=== PATIENT | male | born 1980 ===

== ENCOUNTER 2016-07-23 15:09 | Emergency (ER) | payer SELFPAY ==
[2016-07-23 15:17] VITALS: BP 116/70; PULSE 110; RESP 20; TEMP 98; O2SAT 96
--- NOTE | 2016-07-23 15:34 | ED PDOC ---
HPI: Chest Pain Time Seen by Provider: 07/23/16 15:16 Chief Complaint (Nursing): Chest Pain Chief Complaint (Provider): Chest Pain History Per: Patient Onset/Duration Of Symptoms: Hrs Severity: Mild Quality: Tightness Associated Symptoms: Dyspnea Modifying Factors: None Exacerbating Factors: None Alleviating Factors: None Additional Complaint(s): Patient is a 36 year old male who presents to ED with HPD for evaluation of chest tightness today. Patient states he has a history of asthma, exacerbated by the stress of being arrested. Patient also notes he is "mentally not well," but denies hallucinations, SI or HI. Past Medical History Reviewed: Historical Data, Nursing Documentation, Vital Signs Vital Signs: Last Vital Signs Temp 98.0 F 07/23/16 15:12 Pulse 110 H 07/23/16 15:12 Resp 20 07/23/16 15:12 BP 116/70 07/23/16 15:12 Pulse Ox 96 07/23/16 15:36 - Medical History PMH: Asthma - Surgical History Surgical History: Tonsillectomy Other surgeries: Mental plate secondary to trauma - Family History Family History: States: Unknown Family Hx - Living Arrangements Living Arrangements: Alone - Social History Current smoker - smoking cessation education provided: Yes Alcohol: None Drugs: Cannabis - Immunization History Hx Tetanus Toxoid Vaccination: No Hx Influenza Vaccination: No Hx Pneumococcal Vaccination: No - Home Medications Home Medications: Ambulatory Orders Medication Instructions Recorded No Known Home Med 12/01/15 - Allergies Allergies/Adverse Reactions: Allergies Allergy/AdvReac Type Severity Reaction Status Date / Time seafood Allergy SWELLING Uncoded 07/23/16 15:11 Review of Systems ROS Statement: Except As Marked, All Systems Reviewed And Found Negative Constitutional: Negative for: Fever, Weakness Cardiovascular: Negative for: Chest Pain, Palpitations Respiratory: Positive for: Shortness of Breath. Negative for: Cough, Sputum Gastrointestinal: Negative for: Nausea, Vomiting, Abdominal Pain Neurological: Negative for: Weakness, Numbness Physical Exam - Reviewed Nursing Documentation Reviewed: Yes Vital Signs Reviewed: Yes - Physical Exam Appears: Positive for: Non-toxic, No Acute Distress Head Exam: Positive for: ATRAUMATIC Skin: Positive for: Normal Color, Warm Eye Exam: Positive for: Normal appearance Neck: Positive for: Normal, Painless ROM Cardiovascular/Chest: Positive for: Regular Rate, Rhythm. Negative for: Murmur Respiratory: Positive for: Normal Breath Sounds. Negative for: Respiratory Distress Back: Positive for: Normal Inspection Extremity: Positive for: Normal ROM. Negative for: Pedal Edema Neurologic/Psych: Positive for: Alert, Oriented - ECG O2 Sat by Pulse Oximetry: 96 (RA) Pulse Ox Interpretation: Normal Medical Decision Making Medical Decision Making: Time: 1519 Initial impression: Anxiety, oppositional defiant behavior Initial plan: -- Crisis eval Pt stable for incarceration Scribe Attestation: Documented by Christelle Ashby acting as a scribe for Vivian Rendon MD MD Scribe Attestation: All medical record entries made by the Scribe were at my direction and personally dictated by me. I have reviewed the chart and agree that the record accurately reflects my personal performance of the history, physical exam, medical decision making, and the department course for this patient. I have also personally directed, reviewed, and agree with the discharge instructions and disposition. Disposition - Clinical Impression Clinical Impression: Oppositional defiant behavior - Disposition Disposition: Discharged/Transfer to Law Enforcement Disposition Time: 16:00 Condition: STABLE Additional Instructions: MEDICALLY AND PSYCHIATRICALLY STABLE FOR INCARCERATION Instructions: Stress (ED)
== END 2016-07-23 16:54 | disposition left against medical advice (07) ==
LOC: H.ER 15:09
DX: F91.3 Oppositional defiant disorder (principal); R07.9 Chest pain, unspecified

== ENCOUNTER 2016-08-09 05:25 | Emergency (ER) | payer SELFPAY ==
[2016-08-09 05:33] VITALS: BP 114/73; PULSE 86; RESP 18; TEMP 98; O2SAT 99
--- NOTE | 2016-08-09 06:05 | ED PDOC ---
HPI: General Adult Time Seen by Provider: 08/09/16 05:30 Chief Complaint (Nursing): Medical Clearance Chief Complaint (Provider): Medical Clearance History Per: Patient History/Exam Limitations: no limitations Have you had recent travel within the past 21 days to any of the following countries: [place], [place], [place] or [place]?: No Additional Complaint(s): Bassam Hester is a 36 year old male, with no pertinent past medical history, who presents to the emergency department via [place] [employer] officers for medical clearance. Patient states he has no complaints. PMD: none specified Past Medical History Reviewed: Historical Data, Nursing Documentation, Vital Signs Vital Signs: Last Vital Signs Temp 98.0 F 08/09/16 05:30 Pulse 86 08/09/16 05:30 Resp 18 08/09/16 05:30 BP 114/73 08/09/16 05:30 Pulse Ox 99 08/09/16 06:11 - Medical History PMH: Asthma Denies: CVA, Diabetes, Hepatitis, HIV, HTN, Chronic Kidney Disease, Seizures , Sexually Transmitted Disease - Surgical History Surgical History: Tonsillectomy - Family History Family History: States: Unknown Family Hx - Social History Current smoker - smoking cessation education provided: Yes (Heavy Smoker (x19 years) > 10 cigarettes daily) Alcohol: Occasional Drugs: Cannabis - Immunization History Hx Tetanus Toxoid Vaccination: No Hx Influenza Vaccination: No Hx Pneumococcal Vaccination: No - Home Medications Home Medications: Ambulatory Orders Medication Instructions Recorded No Known Home Med 12/01/15 - Allergies Allergies/Adverse Reactions: Allergies Allergy/AdvReac Type Severity Reaction Status Date / Time seafood Allergy SWELLING Uncoded 07/23/16 15:11 Review of Systems ROS Statement: Except As Marked, All Systems Reviewed And Found Negative Physical Exam - Reviewed Nursing Documentation Reviewed: Yes Vital Signs Reviewed: Yes - Physical Exam Appears: Positive for: Non-toxic, No Acute Distress Head Exam: Positive for: ATRAUMATIC, NORMOCEPHALIC Skin: Positive for: Normal Color, Dry Neck: Positive for: Normal, Painless ROM Cardiovascular/Chest: Positive for: Regular Rate, Rhythm. Negative for: Murmur Respiratory: Positive for: Normal Breath Sounds. Negative for: Respiratory Distress Gastrointestinal/Abdominal: Positive for: Normal Exam, Soft. Negative for: Tenderness Extremity: Positive for: Normal ROM. Negative for: Tenderness Neurologic/Psych: Positive for: Alert, Oriented - ECG O2 Sat by Pulse Oximetry: 99 (RA) Pulse Ox Interpretation: Normal Medical Decision Making Medical Decision Makin:55 Initial Impression: Medical Clearance for incarceration pt has no medical or psychological complaints Scribe Attestation: Documented by Jesus Story, acting as a scribe for Hammad Hu MD. Provider Scribe Attestation: All medical record entries made by the Scribe were at my direction and personally dictated by me. I have reviewed the chart and agree that the record accurately reflects my personal performance of the history, physical exam, medical decision making, and the department course for this patient. I have also personally directed, reviewed, and agree with the discharge instructions and disposition. Disposition - Clinical Impression Clinical Impression: Medical clearance for incarceration - Patient ED Disposition Is Patient to be Admitted: No Counseled Patient/Family Regarding: Studies Performed, Diagnosis, Need For Followup - Disposition Disposition: Discharged/Transfer to Law Enforcement Disposition Time: 06:30 Condition: GOOD Additional Instructions: patient is medically and psychiatrically cleared for incarceration. Instructions: Normal Exam (ED)
== END 2016-08-09 06:28 | disposition home or self-care (01) ==
LOC: H.ER 05:25
DX: J45.909 Unspecified asthma, uncomplicated (principal)

== ENCOUNTER 2017-03-12 20:37 | Emergency (ER) | payer MEDICAID ==
[2017-03-12 20:51] VITALS: BP 151/101; PULSE 107; RESP 20; TEMP 98.3; O2SAT 99
--- NOTE | 2017-03-12 21:16 | ED PDOC ---
HPI: General Adult Time Seen by Provider: 03/12/17 20:53 Chief Complaint (Nursing): Medical Clearance Chief Complaint (Provider): Medical and Psychiatric Clearance History Per: Patient History/Exam Limitations: no limitations Onset/Duration Of Symptoms: Hrs (prior to arrival ) Additional Complaint(s): Bassam Hester is a 36 year old male brought to the ED via Police for prophylactic measurements prior to incarceration. The patient offers no medical complaints upon evaluation and admits to marijuana use prior to arrival. He denies suicidal or homicidal ideations. PMD: TBD Past Medical History Reviewed: Historical Data, Nursing Documentation, Vital Signs Vital Signs: Last Vital Signs Temp 98.3 F 03/12/17 20:47 Pulse 107 H 03/12/17 20:47 Resp 20 03/12/17 20:47 BP 151/101 H 03/12/17 20:47 Pulse Ox 99 03/12/17 21:17 - Medical History PMH: Asthma Denies: CVA, Diabetes, Hepatitis, HIV, HTN, Chronic Kidney Disease, Seizures , Sexually Transmitted Disease - Surgical History Surgical History: Tonsillectomy - Family History Family History: States: Unknown Family Hx - Social History Current smoker - smoking cessation education provided: Yes Drugs: Cannabis - Immunization History Hx Tetanus Toxoid Vaccination: No Hx Influenza Vaccination: No Hx Pneumococcal Vaccination: No - Home Medications Home Medications: Ambulatory Orders Medication Instructions Recorded No Known Home Med 12/01/15 - Allergies Allergies/Adverse Reactions: Allergies Allergy/AdvReac Type Severity Reaction Status Date / Time seafood Allergy SWELLING Uncoded 03/12/17 20:47 Review of Systems ROS Statement: Except As Marked, All Systems Reviewed And Found Negative Psych: Negative for: Suicidal ideation (or homicidal ideations) Physical Exam - Reviewed Nursing Documentation Reviewed: Yes Vital Signs Reviewed: Yes - Physical Exam Appears: Positive for: Non-toxic, No Acute Distress Head Exam: Positive for: ATRAUMATIC, NORMOCEPHALIC Skin: Positive for: Normal Color, Warm, Dry Eye Exam: Positive for: Normal appearance, EOMI ENT: Positive for: Normal ENT Inspection Neck: Positive for: Normal, Painless ROM Cardiovascular/Chest: Positive for: Regular Rate, Rhythm, Chest Non Tender Respiratory: Positive for: Normal Breath Sounds. Negative for: Respiratory Distress Gastrointestinal/Abdominal: Positive for: Normal Exam, Soft. Negative for: Tenderness Back: Positive for: Normal Inspection Extremity: Positive for: Normal ROM. Negative for: Deformity Neurologic/Psych: Positive for: Alert, Oriented (x3). Negative for: Motor/ Sensory Deficits - ECG O2 Sat by Pulse Oximetry: 99 (RA) Pulse Ox Interpretation: Normal Medical Decision Making Medical Decision Making: Time: 20:53 Impression: Medical/Psychiatric Clearance prior to incarceration Plan: Patient is medically and psychiatrically cleared for incarceration. Scribe Attestation: Documented by Enid Britton, acting as a scribe for Vivian Sy PA-C. Provider Scribe Attestation: All medical record entries made by the Scribe were at my direction and personally dictated by me. I have reviewed the chart and agree that the record accurately reflects my personal performance of the history, physical exam, medical decision making, and the department course for this patient. I have also personally directed, reviewed, and agree with the discharge instructions and disposition. Disposition - Clinical Impression Clinical Impression: Medical clearance for incarceration - Patient ED Disposition Is Patient to be Admitted: No - Disposition Disposition: Routine/Home Disposition Time: 22:27 Condition: STABLE Additional Instructions: Patient is medically and psychiatrically cleared for incarceration Instructions: Normal Exam (ED) Forms: [employer] (Macedonian)
== END 2017-03-12 22:02 | disposition home or self-care (01) ==
LOC: H.ER 20:37
DX: Z02.89 Encounter for other administrative examinations (principal); J45.909 Unspecified asthma, uncomplicated

== ENCOUNTER 2017-03-13 00:07 | Emergency (ER) | payer MEDICAID ==
[2017-03-13 00:24] VITALS: BMI 22.9
[2017-03-13 00:25] VITALS: BP 143/93; RESP 16; TEMP 98.2; O2SAT 97
--- NOTE | 2017-03-13 00:34 | ED PDOC ---
HPI: Chest Pain Time Seen by Provider: 03/13/17 00:23 Chief Complaint (Nursing): Chest Pain Chief Complaint (Provider): Chest Pain History Per: Patient History/Exam Limitations: no limitations Additional Complaint(s): Patient is a 36 y/o male who was brought in by [facility]ais[facility] FLORES for medical clearance for incarceration. He was evaluated in this facility and cleared medically and psychiatrically, but has now changed his complaint to chest pain after being informed he was going to [facility]. Patient denies nausea, vomiting, or diaphoresis, but admits he has anxiety about incarceration. PMD: None Provided Past Medical History Reviewed: Historical Data, Nursing Documentation, Vital Signs Vital Signs: Last Vital Signs Temp 98.2 F 03/13/17 00:22 Pulse 106 H 03/13/17 00:22 Resp 16 03/13/17 00:22 BP 143/93 H 03/13/17 00:22 Pulse Ox 97 03/13/17 00:39 - Medical History PMH: Asthma Denies: CVA, Diabetes, Hepatitis, HIV, HTN, Chronic Kidney Disease, Seizures , Sexually Transmitted Disease - Surgical History Surgical History: Tonsillectomy - Family History Family History: States: Unknown Family Hx - Social History Drugs: Denies (cocaine) - Immunization History Hx Tetanus Toxoid Vaccination: No Hx Influenza Vaccination: No Hx Pneumococcal Vaccination: No - Home Medications Home Medications: Ambulatory Orders Medication Instructions Recorded No Known Home Med 12/01/15 - Allergies Allergies/Adverse Reactions: Allergies Allergy/AdvReac Type Severity Reaction Status Date / Time seafood Allergy SWELLING Uncoded 03/12/17 20:47 Review of Systems ROS Statement: Except As Marked, All Systems Reviewed And Found Negative Constitutional: Negative for: Sweats Cardiovascular: Positive for: Chest Pain Gastrointestinal: Negative for: Nausea, Vomiting Psych: Positive for: Anxiety Physical Exam - Reviewed Nursing Documentation Reviewed: Yes Vital Signs Reviewed: Yes - Physical Exam Appears: Positive for: Well, Non-toxic, No Acute Distress Head Exam: Positive for: ATRAUMATIC, NORMAL INSPECTION, NORMOCEPHALIC Skin: Positive for: Normal Color, Warm, DRY Eye Exam: Positive for: Normal appearance, EOMI, PERRL. Negative for: Nystagmus ENT: Positive for: Normal ENT Inspection Neck: Positive for: Normal, Painless ROM, Supple Cardiovascular/Chest: Positive for: Regular Rate, Rhythm. Negative for: Murmur Respiratory: Positive for: Normal Breath Sounds. Negative for: Respiratory Distress Gastrointestinal/Abdominal: Positive for: Normal Exam, Bowel Sounds, Soft. Negative for: Tenderness Back: Positive for: Normal Inspection Extremity: Positive for: Normal ROM. Negative for: Pedal Edema, Deformity Neurologic/Psych: Positive for: Alert, Oriented. Negative for: Motor/Sensory Deficits - ECG ECG: Positive for: Interpreted By Me, Viewed By Me ECG Rhythm: Positive for: Sinus Rhythm. Negative for: ST/T Changes Rate: 98 (bpm) O2 Sat by Pulse Oximetry: 97 (RA) Pulse Ox Interpretation: Normal Medical Decision Making Medical Decision Making: Time: 00:17 Initial Impression: 36 y/o male brought for medical clearance by [facility] --EKG normal --Patient medically stable and released to [facility]. Scribe Attestation: Documented by Cory Oakes, acting as a scribe for Dorian Porter MD Provider Scribe Attestation: All medical record entries made by the Scribe were at my direction and personally dictated by me. I have reviewed the chart and agree that the record accurately reflects my personal performance of the history, physical exam, medical decision making, and the department course for this patient. I have also personally directed, reviewed, and agree with the discharge instructions and disposition. Disposition - Clinical Impression Clinical Impression: Atypical chest pain - Patient ED Disposition Is Patient to be Admitted: No Counseled Patient/Family Regarding: Studies Performed, Diagnosis - Disposition Disposition: Discharged/Transfer to Law Enforcement Disposition Time: 00:23 Condition: STABLE Additional Instructions: Patient is medically stable for incarceration Instructions: Noncardiac Chest Pain (ED) Forms: [employer] (Amharic)
[2017-03-13 01:10] VITALS: PULSE 98
--- NOTE | 2017-03-13 21:12 | CARD ---
APPROVED REPORT EKG Measurement Heart [id number] <Conclusion> Normal sinus rhythm Minimal voltage criteria for LVH, may be normal variant Borderline ECG
== END 2017-03-13 00:37 ==
LOC: H.ER 00:07
DX: R07.89 Other chest pain (principal); J45.909 Unspecified asthma, uncomplicated; F41.9 Anxiety disorder, unspecified

== ENCOUNTER 2017-05-10 00:48 | Emergency (ER) | payer MEDICAID ==
[2017-05-10 00:48] VITALS: BMI 22.9
[2017-05-10 01:56] VITALS: BP 124/71; PULSE 91; RESP 16; TEMP 98.4; O2SAT 97
--- NOTE | 2017-05-10 02:44 | ED PDOC ---
HPI: General Adult Time Seen by Provider: 05/10/17 01:30 Chief Complaint (Nursing): Flu-like Symptoms Chief Complaint (Provider): Nausea History Per: Patient History/Exam Limitations: no limitations Additional Complaint(s): Bassam Hester is a 37 year old male who presents to the emergency department, complaining of nausea and fatigue. Denies vomiting, diarrhea, fever, or chills. Upon arrival, patient appears somnolent and was previously found sleeping in the waiting room. PMD: Provider TBD Past Medical History Reviewed: Historical Data, Nursing Documentation, Vital Signs Vital Signs: Last Vital Signs Temp 98.4 F 05/10/17 01:51 Pulse 91 H 05/10/17 01:51 Resp 16 05/10/17 01:51 BP 124/71 05/10/17 01:51 Pulse Ox 97 05/10/17 04:17 - Medical History PMH: Asthma Denies: CVA, Diabetes, Hepatitis, HIV, HTN, Chronic Kidney Disease, Seizures , Sexually Transmitted Disease - Surgical History Surgical History: Tonsillectomy - Family History Family History: States: Unknown Family Hx - Immunization History Hx Tetanus Toxoid Vaccination: No Hx Influenza Vaccination: No Hx Pneumococcal Vaccination: No - Home Medications Home Medications: Ambulatory Orders Medication Instructions Recorded No Known Home Med 12/01/15 - Allergies Allergies/Adverse Reactions: Allergies Allergy/AdvReac Type Severity Reaction Status Date / Time seafood Allergy SWELLING Uncoded 03/12/17 20:47 Review of Systems ROS Statement: Except As Marked, All Systems Reviewed And Found Negative Constitutional: Negative for: Fever, Chills Gastrointestinal: Positive for: Nausea. Negative for: Vomiting, Abdominal Pain , Diarrhea Physical Exam - Reviewed Nursing Documentation Reviewed: Yes Vital Signs Reviewed: Yes - Physical Exam Appears: Positive for: Non-toxic, No Acute Distress Head Exam: Positive for: ATRAUMATIC, NORMAL INSPECTION, NORMOCEPHALIC Skin: Positive for: Normal Color, Warm, Dry Eye Exam: Positive for: EOMI, Normal appearance, PERRL ENT: Positive for: Normal ENT Inspection Neck: Positive for: Normal, Supple Cardiovascular/Chest: Positive for: Regular Rate, Rhythm. Negative for: Murmur Respiratory: Positive for: Normal Breath Sounds. Negative for: Accessory Muscle Use, Respiratory Distress Gastrointestinal/Abdominal: Positive for: Normal Exam, Soft. Negative for: Tenderness Extremity: Positive for: Normal ROM. Negative for: Deformity Neurologic/Psych: Positive for: Alert (and awake), Other (Somnolent, but responsive to verbal stimuli) - ECG O2 Sat by Pulse Oximetry: 97 (RA) Pulse Ox Interpretation: Normal Medical Decision Making Medical Decision Making: Time: 02:30 Initial Plan: --Urine drug screen --Reevaluation Time: 04:15 Upon reevaluation, patient is sleeping comfortably. Vital signs are stable. pt ambulating with steady gait, vitals stable Scribe Attestation: Documented by Morenita Nolan, acting as a scribe for Hammad Hu MD Provider Scribe Attestation: All medical record entries made by the Scribe were at my direction and personally dictated by me. I have reviewed the chart and agree that the record accurately reflects my personal performance of the history, physical exam, medical decision making, and the department course for this patient. I have also personally directed, reviewed, and agree with the discharge instructions and disposition. Disposition - Clinical Impression Clinical Impression: Other reasons for seeking consultation - Patient ED Disposition Is Patient to be Admitted: No Counseled Patient/Family Regarding: Need For Followup - Disposition Referrals: [facility] [Outside] [facility] [Outside] Disposition: Routine/Home Disposition Time: 03:00 Condition: IMPROVED Additional Instructions: follow up with your doctor return to ED with any worsening or concerning symptoms Forms: [employer] (Malawian)
== END 2017-05-10 05:51 | disposition home or self-care (01) ==
LOC: H.ER 00:48
DX: R11.0 Nausea (principal)

== ENCOUNTER 2017-06-03 19:45 | Emergency (ER) | payer MEDICAID ==
[2017-06-03 19:45] VITALS: BMI 22.9
[2017-06-03 20:02] VITALS: BP 124/80; RESP 18; TEMP 98.2; O2SAT 99
--- NOTE | 2017-06-03 21:24 | ED PDOC ---
HPI: General Adult Time Seen by Provider: 06/03/17 20:32 Chief Complaint (Nursing): Medical Clearance Chief Complaint (Provider): Medical Clearance History Per: Patient History/Exam Limitations: no limitations Onset/Duration Of Symptoms: Mins (just prior to arrival) Current Symptoms Are (Timing): Still Present Additional Complaint(s): 36 yo male, under police custody, presents to the ED for medical and psych clearance for intoxication, onset of just prior to arrival. Triage states that he complains of dizziness with associated chest pain on arrival to the ED, that both have now resolved. He denies any complaints or past medical history. Past Medical History Reviewed: Historical Data, Nursing Documentation, Vital Signs Vital Signs: Last Vital Signs Temp 98.2 F 06/03/17 19:54 Pulse 89 06/03/17 19:54 Resp 18 06/03/17 19:54 BP 124/80 06/03/17 19:54 Pulse Ox 99 06/03/17 19:54 - Medical History PMH: Asthma Denies: CVA, Diabetes, Hepatitis, HIV, HTN, Chronic Kidney Disease, Seizures , Sexually Transmitted Disease - Surgical History Surgical History: Tonsillectomy - Family History Family History: States: Unknown Family Hx - Social History Current smoker - smoking cessation education provided: Yes Alcohol: None Drugs: Denies - Immunization History Hx Tetanus Toxoid Vaccination: No Hx Influenza Vaccination: No Hx Pneumococcal Vaccination: No - Home Medications Home Medications: Ambulatory Orders Medication Instructions Recorded No Known Home Med 12/01/15 - Allergies Allergies/Adverse Reactions: Allergies Allergy/AdvReac Type Severity Reaction Status Date / Time seafood Allergy SWELLING Uncoded 06/03/17 19:54 Review of Systems ROS Statement: Except As Marked, All Systems Reviewed And Found Negative Constitutional: Negative for: Fever Psych: Negative for: Suicidal ideation Physical Exam - Reviewed Nursing Documentation Reviewed: Yes Vital Signs Reviewed: Yes - Physical Exam Appears: Positive for: Well, Non-toxic, No Acute Distress Head Exam: Positive for: ATRAUMATIC, NORMAL INSPECTION, NORMOCEPHALIC Skin: Positive for: Normal Color, Warm Eye Exam: Positive for: Normal appearance Cardiovascular/Chest: Positive for: Regular Rate, Rhythm. Negative for: Murmur Respiratory: Positive for: Normal Breath Sounds. Negative for: Respiratory Distress Extremity: Positive for: Normal ROM. Negative for: Pedal Edema, Deformity Neurologic/Psych: Positive for: Alert, Oriented. Negative for: Motor/Sensory Deficits - ECG ECG Rhythm: Positive for: Normal QRS. Negative for: ST/T Changes Rate: 88 O2 Sat by Pulse Oximetry: 99 (RA) Pulse Ox Interpretation: Normal Medical Decision Making Medical Decision Making: Time: --20:36 Impression: --dizziness resolved/ medical and psych clearance Plan: --Crisis Eval --EKG Reassess --20:54 Patient has been cleared by crisis and is stable for discharge to law enforcement. Scribe Attestation: Documented by Bowen Salcedo acting as a scribe for Romy Madison MD. Provider Attestation: All medical record entries made by the Scribe were at my direction and personally dictated by me. I have reviewed the chart and agree that the record accurately reflects my personal performance of the history, physical exam, medical decision making, and the department course for this patient. I have also personally directed, reviewed, and agree with the discharge instructions and disposition. Disposition - Clinical Impression Clinical Impression: Episode of dizziness - Disposition Condition: STABLE Additional Instructions: PATIENT IS MEDICALLY CLEARED FOR INCARCERATION. Instructions: Dizziness (ED) Forms: [email or web address] (Moldovan)
[2017-06-03 21:28] VITALS: PULSE 88
--- NOTE | 2017-06-04 09:33 | CARD ---
APPROVED REPORT EKG Measurement Heart [id number] <Conclusion> Normal sinus rhythm Normal ECG
== END 2017-06-03 21:40 ==
LOC: H.ER 19:45
DX: R42 Dizziness and giddiness; R07.89 Other chest pain; J45.909 Unspecified asthma, uncomplicated

== ENCOUNTER 2017-06-14 12:11 | Emergency (ER) | payer MEDICAID ==
[2017-06-14 12:11] VITALS: BMI 22.9
[2017-06-14 12:28] VITALS: BP 138/68; PULSE 97; RESP 18; TEMP 98.5; O2SAT 98
--- NOTE | 2017-06-14 13:11 | RAD ---
PROCEDURE: Left small finger radiographs. HISTORY: finger injury COMPARISON: None. TECHNIQUE: AP radiograph of the left hand, as well as spot oblique and lateral images of left small finger were obtained. FINDINGS: LEFT SMALL FINGER: Minimally displaced fracture of the 5th proximal phalanx metaphysis with mild ulnar and dorsal angulation. JOINTS: Normal. SOFT TISSUES: Fifth digit region soft-tissue swelling. OTHER FINDINGS: None. IMPRESSION: Minimally displaced and angulated fracture of the 5th proximal phalanx metaphysis.
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
[2017-06-14] MEDS ORDERED: Lidocaine 1% Inj (20ml) IJ ONE (14:19)
[2017-06-14] MEDS ORDERED: Lidocaine 1% Inj (20ml) ONE (14:30)
[2017-06-14] MEDS ORDERED: Lidocaine 1% w Epi 1:100,000 Inj IJ ONE (16:15)
== END 2017-06-14 17:48 | disposition home or self-care (01) ==
LOC: H.ER 12:11
DX: S69.92XA Unspecified injury of left wrist, hand and finger(s), initial encounter (principal); W50.0XXA Accidental hit or strike by another person, initial encounter; S62.617A Displaced fracture of proximal phalanx of left little finger, initial encounter for closed fracture; J45.909 Unspecified asthma, uncomplicated; Z86.59 Personal history of other mental and behavioral disorders

== ENCOUNTER 2017-08-25 01:43 | Emergency (ER) | payer MEDICAID ==
[2017-08-25 01:44] VITALS: BMI 22.9
[2017-08-25 01:57] VITALS: O2SAT 100
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
[2017-08-25 05:54] VITALS: BP 143/73; PULSE 74; RESP 18; TEMP 98.4
== END 2017-08-25 05:50 | disposition home or self-care (01) ==
LOC: H.ER 01:43
DX: F43.20 Adjustment disorder, unspecified (principal); F12.90 Cannabis use, unspecified, uncomplicated; F20.9 Schizophrenia, unspecified; F31.9 Bipolar disorder, unspecified; J45.909 Unspecified asthma, uncomplicated; Z91.14 Patient's other noncompliance with medication regimen

== ENCOUNTER 2017-10-08 18:52 | Observation (INO) | payer MEDICAID ==
[2017-10-08 18:53] VITALS: BMI 22.9
[2017-10-08] MEDS ORDERED: Sodium Chloride 0.9% 1,000 ML IV STA (19:35)
[2017-10-08 19:51] LABS: BASO # 0.1 K/uL (0.0-0.2); BASO % 0.7 % (0.0-2.0); EOS # 0.2 K/uL (0.0-0.7); HEMOGLOBIN 14.6 g/dL (12.0-18.0); LYMPH # 2.8 K/uL (1.0-4.3); LYMPH % 35.5 % (20.0-40.0); MEAN CELL VOLUME 88.6 fl (80.0-94.0); MEAN CORPUSCULAR HEMOGLOBIN 30.3 pg (27.0-31.0); MEAN CORPUSCULAR HGB CONC 34.2 g/dL (33.0-37.0); MONO # 0.6 K/uL (0.0-0.8); MONO % 8.1 % (0.0-10.0); NEUT # 4.3 K/uL (1.8-7.0); NEUT % 53.7 % (50.0-75.0); NRBC % 0.1 % (0.0-0.0); RBC 4.82 Mil/uL (4.40-5.90); RED CELL DISTRIBUTION WIDTH 13.6 % (11.5-14.5)
[2017-10-08 20:00] LABS: INR 1.2 (0.9-1.2)
[2017-10-08 20:02] LABS: ALB/GLOB RATIO 1.3 (1.0-2.1); ALBUMIN 4.1 g/dL (3.5-5.0); ALT/SGPT 36 U/L (21-72); AST/SGOT 28 U/L (17-59); BLOOD UREA NITROGEN 17 mg/dl (9-20); CALCIUM 9.4 mg/dL (8.4-10.2); GFR AFRICAN-AMERICAN > 60; GFR NON-AFRICAN AMERICAN > 60
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
[2017-10-09] MEDS ORDERED: Dexamethasone 10 MG in Sodium Chloride 0.9% 50 ML IVPB STA ×2 (00:38→01:47)
[2017-10-09] MEDS ORDERED: Multivitamin (MVI) 10 ML, Thiamine 100 MG, Folic Acid 1 MG in Sodium Chloride 0.9% 1,00... IV ONE (00:45)
[2017-10-09] MEDS ORDERED: Dexamethasone 4 mg/1 ml IVP ONE (01:00)
[2017-10-09] MEDS ORDERED: Dexamethasone 4 mg/1 ml ONE (01:35)
[2017-10-09] MEDS ORDERED: Pneumococcal 23-Valent Vaccine IM ONE (04:00)
[2017-10-09] MEDS: Dexamethasone 4 mg/1 ml IVP SCH ×2 (06:22→12:32)
[2017-10-09 06:33] LABS: OPIATES, UR NEGATIVE (NEGATIVE)
[2017-10-09 06:34] LABS: BARBITURATES, UR NEGATIVE (NEGATIVE); BENZODIAZEPINES, UR NEGATIVE (NEGATIVE); PHENCYCLIDINE, UR POSITIVE (NEGATIVE)
[2017-10-09] MEDS ORDERED: Dexamethasone 4 MG in Sodium Chloride 0.9% 50 ML IVPB SCH (07:00)
--- NOTE | 2017-10-09 08:49 | RAD ---
HISTORY: weakness altered mental status COMPARISON: Chest radiograph dated 03/31/2016. FINDINGS: LUNGS: No active pulmonary disease. PLEURA: No significant pleural effusion identified, no pneumothorax apparent. CARDIOVASCULAR: Normal. OSSEOUS STRUCTURES: No significant abnormalities. VISUALIZED UPPER ABDOMEN: Normal. OTHER FINDINGS: None. IMPRESSION: No active disease.
[2017-10-09] MEDS ORDERED: Enoxaparin 40 mg Syringe SC SCH (09:00)
--- NOTE | 2017-10-09 11:03 | CT ---
PROCEDURE: CT HEAD WITHOUT CONTRAST. HISTORY: follow vasogenic edema COMPARISON: CT head dated 10/08/2017. TECHNIQUE: Axial computed tomography images were obtained through the head/brain without intravenous contrast. Radiation dose: Total exam DLP = 713.1 mGy-cm. This CT exam was performed using one or more of the following dose reduction techniques: Automated exposure control, adjustment of the mA and/or kV according to patient size, and/or use of iterative reconstruction technique. FINDINGS: HEMORRHAGE: Stable area peripheral left temporoparietal hyperdensity. BRAIN: Stable amount of small amount of left temporoparietal edema. No atrophy or chronic microvascular ischemic changes. VENTRICLES: Unremarkable. No hydrocephalus. CALVARIUM: Unremarkable. PARANASAL SINUSES: Unremarkable as visualized. No significant inflammatory changes. MASTOID AIR CELLS: Unremarkable as visualized. No inflammatory changes. OTHER FINDINGS: None. IMPRESSION: No significant change in peripheral left temporoparietal hyperdensity and surrounding edema. Contrast-enhanced MRI can be obtained for further evaluation as previously recommended.
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
[2017-10-09 15:42] VITALS: BP 137/73; PULSE 80; RESP 20; TEMP 98.1
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
[2017-10-09 18:32] VITALS: O2SAT 100
== END 2017-10-09 17:52 | disposition home or self-care (01) ==
LOC: H.ER 18:52 → INTOOBSV 22:20 → H.ERHOLD 22:20 → H.TEL 10-09 02:03
PROVIDERS: ADMIT Internal Medicine; ATTEND Internal Medicine
DX: S00.93XA Contusion of unspecified part of head, initial encounter (principal); G93.6 Cerebral edema; J45.909 Unspecified asthma, uncomplicated; F31.9 Bipolar disorder, unspecified; G43.909 Migraine, unspecified, not intractable, without status migrainosus; F10.10 Alcohol abuse, uncomplicated; F16.10 Hallucinogen abuse, uncomplicated; F12.10 Cannabis abuse, uncomplicated; Z23 Encounter for immunization; Z91.013 Allergy to seafood
CPT/HCPCS: 70450; 70486; 71045; 80053; 80320; 80324; 80345; 80346; 80349; 80353; 80358; 80361; 83992; 85025; 85610; 85730; 90471; 90732; 96360; 96374; 99285; G0378; J1100; J3411; J7030

== ENCOUNTER 2017-10-13 17:23 | Emergency (ER) | payer MEDICAID ==
[2017-10-13 17:23] VITALS: BMI 22.9
[2017-10-13 18:15] VITALS: RESP 16
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
[2017-10-13 20:15] VITALS: TEMP 98.3
[2017-10-13 23:42] VITALS: BP 132/98; PULSE 86; O2SAT 98
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
--- NOTE | 2017-10-14 09:13 | CT ---
PROCEDURE: CT MAXILLOFACIAL BONES WITHOUT CONTRAST HISTORY: LEFT facial pain COMPARISON: CT Maxillofacial Bones 10/08/2017. TECHNIQUE: Contiguous axial CT images of the maxillofacial bones were obtained. Coronal and sagittal reformats were generated. Radiation dose: Total exam DLP = 689.02 mGy-cm. This CT exam was performed using one or more of the following dose reduction techniques: Automated exposure control, adjustment of the mA and/or kV according to patient size, and/or use of iterative reconstruction technique. FINDINGS: Multiple acute fractures are identified in the interval. A nondisplaced fracture of the floor of the left orbit is identified from the anterior orbital ridge sparing only a minimal portion of the posterior segment of the floor. Fracture since through the infraorbital foramen. A nondisplaced left lateral orbital wall fracture is also identified. There is a fracture of the lateral wall of the left maxilla and the left zygomatic arch is depressed due to a comminuted fracture. Further, the anterior wall of the left maxillary sinuses depressed due to a fracture. There is borderline widening of the left zygomatic frontal suture with the overall pattern borderline for zygomaticomaxillary complex fracture. No additional facial fractures identified with prior ORIF of right facial fractures reiterated at the anterior wall right maxillary sinus and the right zygomaticofrontal suture. Moderate left supraorbital soft tissue edema is identified which appears completely preseptal with no postseptal involvement. Moderate edema is seen in the bilateral paranasal soft tissues extending into the bilateral forehead soft tissues, left greater than right. Remaining facial soft tissues are unremarkable appearing. Remaining visualized bilateral temporal and frontal bones are intact as well as the mandible and maxilla. No subluxation or dislocation of the temporomandibular joints is appreciated. SKULL BASE: Unremarkable. TEMPORAL BONES: Middle ears and mastoid grossly unremarkable. Note is made of soft tissue in the external auditory canals probably reflecting cerumen, however, clinical correlation is nevertheless recommended. OTHER FINDINGS: Minimal right ethmoid sinus disease appreciated and posttraumatic left maxillary sinusitis is identified minimally. IMPRESSION: Complex left facial/ orbital fractures are identified including the inferior and lateral ramirez of the left orbit, anterior and lateral ramirez of the left maxillary sinus and a depressed zygomatic arch fracture as well. Inferior orbital fracture extends through the infraorbital foramen. For orbital, bilateral paranasal and bilateral forehead soft tissue edema as discussed above. Posttraumatic sinusitis is minimal to left maxillary sinus. The overall pattern is borderline for zygomaticomaxillary complex fracture. Prior ORIF right facial bones reiterated. Concordant preliminary report from [facility], 10/13/2017.
== END 2017-10-13 23:40 | disposition home or self-care (01) ==
LOC: H.ER 17:23
DX: S02.92XA Unspecified fracture of facial bones, initial encounter for closed fracture (principal); Y04.0XXA Assault by unarmed brawl or fight, initial encounter; Y92.89 Other specified places as the place of occurrence of the external cause; F31.9 Bipolar disorder, unspecified; J32.9 Chronic sinusitis, unspecified; J45.909 Unspecified asthma, uncomplicated

== ENCOUNTER 2017-12-19 20:36 | Emergency (ER) | payer MEDICAID ==
[2017-12-19 20:36] VITALS: BMI 22.9
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
[2017-12-19 21:58] LABS: BASO % 0.7 % (0.0-2.0); EOS # 0.1 K/uL (0.0-0.7); EOS % 2.3 % (0.0-4.0); HEMOGLOBIN 13.3 g/dL (12.0-18.0); LYMPH # 1.9 K/uL (1.0-4.3); MEAN CORPUSCULAR HEMOGLOBIN 29.8 pg (27.0-31.0); MEAN CORPUSCULAR HGB CONC 35.2 g/dL (33.0-37.0); MEAN PLATELET VOLUME 8.9 fl (7.2-11.7); MONO # 0.5 K/uL (0.0-0.8); MONO % 9.9 % (0.0-10.0); NEUT # 2.8 K/uL (1.8-7.0); NEUT % 52.1 % (50.0-75.0); NRBC % 0.1 % (0.0-0.0); RBC 4.46 Mil/uL (4.40-5.90); RED CELL DISTRIBUTION WIDTH 13.1 % (11.5-14.5); SQUAMOUS EPITHIAL < 1 /hpf (0-5); URINE BACTERIA RARE (<OCC); URINE BILIRUBIN NEGATIVE (NEGATIVE); URINE BLOOD NEGATIVE (NEGATIVE); URINE CLARITY CLEAR (Clear); URINE COLOR STRAW (YELLOW); URINE GLUCOSE (UA) >=500 mg/dL (Normal); URINE LEUKOCYTE ESTERASE NEG Leu/uL (Negative); URINE PROTEIN NEGATIVE (NEGATIVE); URINE UROBILINOGEN 0.2-1.0 mg/dL (0.2-1.0); WHITE BLOOD COUNT 5.3 K/uL (4.8-10.8)
[2017-12-19 22:07] LABS: ALB/GLOB RATIO 1.4 (1.0-2.1); ALBUMIN 3.6 g/dL (3.5-5.0); ALT/SGPT 36 U/L (21-72); AST/SGOT 23 U/L (17-59); BLOOD UREA NITROGEN 15 mg/dl (9-20); CALCIUM 9.3 mg/dL (8.4-10.2); GFR NON-AFRICAN AMERICAN > 60
[2017-12-19 22:16] LABS: BARBITURATES, UR NEGATIVE (NEGATIVE); BENZODIAZEPINES, UR NEGATIVE (NEGATIVE); OPIATES, UR NEGATIVE (NEGATIVE); PHENCYCLIDINE, UR NEGATIVE (NEGATIVE)
[2017-12-19 22:26] LABS: MEAN CELL VOLUME 84.8 fl (80.0-94.0)
--- NOTE | 2017-12-20 01:24 | ED PDOC ---
- Laboratory Results Result Diagrams: 12/19/17 21:49 12/19/17 21:49 - ECG ECG: Positive for: Viewed By Me (reviewed by ED attending) ECG Rhythm: Positive for: Sinus Rhythm O2 Sat by Pulse Oximetry: 100 (RA) - Progress ED Course And Treament: Case endorsed to marketing underwriter from Donnie MERLOS pending crisis eval 00:30 Patient evaluated by community mental health social worker; to be screened by [facility] ekg ordered 2:00 Patient sleeping; no distress 3:30 Patient sleeping; no distress 5:00 Patient sleeping; no distress Disposition - Clinical Impression Clinical Impression: Encounter for psychological evaluation - POA Present On Arrival: None - Disposition Disposition: Transfer of Care Disposition Time: 06:00 Forms: [employer] Connect (Danish) Patient Signed Over To: Dorian Porter Handoff Comments: pending [facility] eval
--- NOTE | 2017-12-20 06:13 | ED PDOC ---
- Laboratory Results Result Diagrams: 12/19/17 21:49 12/19/17 21:49 - ECG O2 Sat by Pulse Oximetry: 100 (RA) Pulse Ox Interpretation: Normal Medical Decision Making Medical Decision Makin:00 Patient will be endorsed to Dr. Powell pending [facility] screening. Scribe Attestation: Documented by Christiane Flowers, acting as a scribe for Dorian Porter MD. Provider Scribe Attestation: All medical record entries made by the Scribe were at my direction and personally dictated by me. I have reviewed the chart and agree that the record accurately reflects my personal performance of the history, physical exam, medical decision making, and the department course for this patient. I have also personally directed, reviewed, and agree with the discharge instructions and disposition. Disposition - Clinical Impression Clinical Impression: Encounter for psychological evaluation - POA Present On Arrival: None - Disposition Disposition: Transfer of Care Disposition Time: 07:00 Condition: FAIR Forms: [employer] (Beninese) Patient Signed Over To: Abundio Powell
--- NOTE | 2017-12-20 07:54 | ED PDOC ---
- Laboratory Results Result Diagrams: 12/19/17 21:49 12/19/17 21:49 - ECG O2 Sat by Pulse Oximetry: 95 <Abundio Powell - Last Filed: 12/20/17 07:54> - Laboratory Results Result Diagrams: 12/19/17 21:49 12/19/17 21:49 <Yaya Severino III - Last Filed: 12/21/17 00:18> - Progress ED Course And Treament: 700: Took over care from Dr. Porter. Fu [facility] screening. Medically cleared by previous doctor. (Abundio Powell) Medical Decision Making <Abundio Powell - Last Filed: 12/20/17 07:54> <Yaya Severino III - Last Filed: 12/21/17 00:18> Medical Decision Makinp per crisis accepted [facility] [place] reviewed and given to crisis for transmittal to [facility] endorse Dr Porter pending bed at [facility] (Yaya Severino III) Disposition <Abundio Powell - Last Filed: 12/20/17 07:54> - POA Present On Arrival: None - Disposition Disposition Time: 00:17 <Yaya Severino III - Last Filed: 12/21/17 00:18> - Clinical Impression Clinical Impression: Encounter for psychological evaluation, Bipolar disorder - Disposition Condition: FAIR Forms: [employer] Connect (Azerbaijani)
--- NOTE | 2017-12-20 08:53 | CARD ---
APPROVED REPORT Date of service: 12/20/2017 EKG Measurement Heart [id number] <Conclusion> Normal sinus rhythm Voltage criteria for left ventricular hypertrophy Abnormal ECG
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
--- NOTE | 2017-12-20 18:43 | RAD ---
Date of service: 12/20/2017 HISTORY: psych eval COMPARISON: 10/08/2017 FINDINGS: LUNGS: No active pulmonary disease. PLEURA: No significant pleural effusion identified, no pneumothorax apparent. CARDIOVASCULAR: Normal. OSSEOUS STRUCTURES: No significant abnormalities. VISUALIZED UPPER ABDOMEN: Normal. OTHER FINDINGS: None. IMPRESSION: No active disease.
--- NOTE | 2017-12-21 00:32 | ED PDOC ---
- Laboratory Results Result Diagrams: 12/19/17 21:49 12/19/17 21:49 - ECG O2 Sat by Pulse Oximetry: 100 (RA) Medical Decision Making Medical Decision Making: Time: 00:00 --Patient is endorsed to provider by Dr. Severino pending [facility] screening. Time: 24 --Patient evaluated by [facility] screener whom accepts patient for involuntary psychiatric admission. Pending bed availability. Time: --Case referred over to Dr. Feliz pending bed availability at [facility]. Scribe Attestation: Documented by Inna Gordon, acting as a scribe for Dorian Porter MD. Provider Scribe Attestation: All medical record entries made by the Scribe were at my direction and personally dictated by me. I have reviewed the chart and agree that the record accurately reflects my personal performance of the history, physical exam, medical decision making, and the department course for this patient. I have also personally directed, reviewed, and agree with the discharge instructions and disposition. Disposition Counseled Patient/Family Regarding: Studies Performed, Diagnosis - Clinical Impression Clinical Impression: Encounter for psychological evaluation, Bipolar disorder - POA Present On Arrival: None - Disposition Disposition Time: 00:25 Condition: FAIR Forms: [employer] (Armenian)
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
--- NOTE | 2017-12-21 14:33 | ED PDOC ---
- Laboratory Results Result Diagrams: 12/19/17 21:49 12/19/17 21:49 - ECG O2 Sat by Pulse Oximetry: 98 Disposition - Clinical Impression Clinical Impression: Encounter for psychological evaluation, Bipolar disorder - POA Present On Arrival: None - Disposition Disposition: Transfer of Care Disposition Time: 14:33 Condition: FAIR Forms: [employer] (Salvadorean) Patient Signed Over To: Iman Card
[2017-12-21 17:39] VITALS: BP 123/69; PULSE 77; RESP 16; TEMP 98.1; O2SAT 99
== END 2017-12-21 18:04 | disposition short-term general hospital (02) ==
LOC: H.ER 20:36
DX: F31.9 Bipolar disorder, unspecified (principal); F43.10 Post-traumatic stress disorder, unspecified; Z59.0 Homelessness

== ENCOUNTER 2017-12-28 21:13 | Emergency (ER) | payer MEDICAID ==
[2017-12-28 21:13] VITALS: BMI 22.9
[2017-12-28] MEDS ORDERED: Sodium Chloride 0.9% 1,000 ML IV STA (21:58)
--- NOTE | 2017-12-28 22:22 | ED PDOC ---
HPI: General Adult Time Seen by Provider: 12/28/17 21:35 Chief Complaint (Nursing): Weakness/Neurological Deficit Chief Complaint (Provider): Generalized weakness History Per: Patient History/Exam Limitations: no limitations Onset/Duration Of Symptoms: Days Additional History Per: Patient Additional Complaint(s): 37yo male with history of polysubstance abuse, bipolar disorder, schizophrenia, recently admitted psychiatrically in this facility and subsequently transferred to [facility] for involuntary admission. Patient was discharged from [facility] 3 days ago and states he was given IM Haldol after which he has been lethargic and weak. Patient denies any drug use since discharge. He also complains of pain to the site of injection but denies any swelling. No other complaints. Of note, patient states when discharged from [facility], he was placed on Zyprexa and Restoril but states he did not fill out the prescription as he thought he would not be accepted by the [facility] with those medications. Past Medical History Reviewed: Historical Data, Nursing Documentation, Vital Signs Vital Signs: Last Vital Signs Temp 99.6 F 12/29/17 00:37 Pulse 89 12/29/17 00:37 Resp 17 12/29/17 00:37 BP 119/75 12/29/17 00:37 Pulse Ox 99 12/29/17 00:37 - Medical History PMH: Asthma, Bipolar Disorder, Bronchitis Denies: CVA, Diabetes, Hepatitis, HIV, HTN, Chronic Kidney Disease, Seizures , Sexually Transmitted Disease - Surgical History Surgical History: Tonsillectomy - Family History Family History: States: No Known Family Hx - Living Arrangements Living Arrangements: Other (undomiciled/homeless jail) - Social History Current smoker - smoking cessation education provided: No Alcohol: None Drugs: Cannabis (history of use), Other (history of PCP use) - Immunization History Hx Tetanus Toxoid Vaccination: No Hx Influenza Vaccination: No Hx Pneumococcal Vaccination: No - Home Medications Home Medications: Ambulatory Orders Medication Instructions Recorded QUEtiapine [SEROquel] 1 tab PO HS 10/09/17 - Allergies Allergies/Adverse Reactions: Allergies Allergy/AdvReac Type Severity Reaction Status Date / Time seafood Allergy Intermediate SWELLING Uncoded 12/28/17 21:23 Review of Systems ROS Statement: Except As Marked, All Systems Reviewed And Found Negative Constitutional: Positive for: Weakness Cardiovascular: Negative for: Chest Pain Respiratory: Negative for: Shortness of Breath Gastrointestinal: Negative for: Vomiting Physical Exam - Reviewed Nursing Documentation Reviewed: Yes Vital Signs Reviewed: Yes - Physical Exam Appears: Positive for: Non-toxic, No Acute Distress Head Exam: Positive for: ATRAUMATIC, NORMAL INSPECTION, NORMOCEPHALIC Skin: Positive for: Normal Color Eye Exam: Positive for: Normal appearance Neck: Positive for: Normal, Supple Cardiovascular/Chest: Positive for: Regular Rate, Rhythm Respiratory: Positive for: Normal Breath Sounds Gastrointestinal/Abdominal: Positive for: Normal Exam, Soft Extremity: Positive for: Normal ROM. Negative for: Pedal Edema Neurologic/Psych: Positive for: Alert, Oriented, Mood/Affect (flat affect) - Laboratory Results Result Diagrams: 12/28/17 22:34 12/28/17 22:34 - ECG O2 Sat by Pulse Oximetry: 97 (RA) Pulse Ox Interpretation: Normal Medical Decision Making Medical Decision Making: Impression: Nonspecific weakness s/p IM Haldol Plan: -- Labs -- IV Fluids -- EKG Scribe Attestation: Documented by Rody Morfin, acting as a scribe for Dorian Porter MD. Provider Scribe Attestation: All medical record entries made by the Scribe were at my direction and personally dictated by me. I have reviewed the chart and agree that the record accurately reflects my personal performance of the history, physical exam, medical decision making, and the department course for this patient. I have also personally directed, reviewed, and agree with the discharge instructions and disposition. Time: 0045 -- Labs reviewed and show no clinically significant abnormalities. Patient is stable for discharge at this time. Discussed likely adverse reaction to Haldol injection that the patient received. Reported to discuss further risk to benefit ration from psychiatrist for further guidance as to whether to continue with the Haldol injection. Scribe Attestation: Documented by Luis Yancey acting as a scribe for Dorian Porter MD. Provider Scribe Attestation: All medical record entries made by the Scribe were at my direction and personally dictated by me. I have reviewed the chart and agree that the record accurately reflects my personal performance of the history, physical exam, medical decision making, and the department course for this patient. I have also personally directed, reviewed, and agree with the discharge instructions and disposition. Disposition - Clinical Impression Clinical Impression: Drug reaction - Patient ED Disposition Is Patient to be Admitted: No - Disposition Disposition: Routine/Home Disposition Time: 00:45 Condition: STABLE Instructions: Adverse Drug Reactions, Adult Forms: [employer] (Malay)
[2017-12-28 22:37] LABS: BASO % 0.5 % (0.0-2.0); EOS # 0.5 K/uL (0.0-0.7); EOS % 6.9 % (0.0-4.0); HEMOGLOBIN 11.5 g/dL (12.0-18.0); LYMPH # 2.2 K/uL (1.0-4.3); MEAN CORPUSCULAR HEMOGLOBIN 29.8 pg (27.0-31.0); MEAN CORPUSCULAR HGB CONC 34.7 g/dL (33.0-37.0); MEAN PLATELET VOLUME 8.9 fl (7.2-11.7); MONO # 1.1 K/uL (0.0-0.8); MONO % 14.1 % (0.0-10.0); NEUT # 3.6 K/uL (1.8-7.0); NEUT % 48.5 % (50.0-75.0); NRBC % 0.1 % (0.0-0.0); RBC 3.84 Mil/uL (4.40-5.90); RED CELL DISTRIBUTION WIDTH 13.1 % (11.5-14.5); WHITE BLOOD COUNT 7.4 K/uL (4.8-10.8)
[2017-12-28 22:51] LABS: ALB/GLOB RATIO 1.4 (1.0-2.1); ALBUMIN 3.2 g/dL (3.5-5.0); ALT/SGPT 32 U/L (21-72); AST/SGOT 28 U/L (17-59); BLOOD UREA NITROGEN 14 mg/dl (9-20); CALCIUM 9.1 mg/dL (8.4-10.2); GFR NON-AFRICAN AMERICAN > 60
[2017-12-28 23:06] LABS: BARBITURATES, UR NEGATIVE (NEGATIVE); BENZODIAZEPINES, UR NEGATIVE (NEGATIVE); OPIATES, UR NEGATIVE (NEGATIVE); PHENCYCLIDINE, UR POSITIVE (NEGATIVE)
[2017-12-29 01:01] VITALS: BP 119/75; PULSE 89; RESP 17; TEMP 99.6
[2017-12-29 01:11] VITALS: O2SAT 97
--- NOTE | 2017-12-29 08:46 | CARD ---
APPROVED REPORT Date of service: 12/28/2017 <Conclusion> Sinus tachycardia Minimal voltage criteria for LVH, may be normal variant Borderline ECG
== END 2017-12-29 00:41 | disposition home or self-care (01) ==
LOC: H.ER 21:13
DX: T50.905A Adverse effect of unspecified drugs, medicaments and biological substances, initial encounter (principal); Z86.59 Personal history of other mental and behavioral disorders; J45.909 Unspecified asthma, uncomplicated
CPT/HCPCS: 80053; 80320; 80324; 80345; 80346; 80349; 80353; 80358; 80361; 82550; 83735; 83992; 84100; 85025; 93005; 99285; J7030

== ENCOUNTER 2018-01-02 04:04 | Emergency (ER) | payer MEDICAID ==
[2018-01-02 04:04] VITALS: BMI 22.9
[2018-01-02 04:21] VITALS: RESP 16; O2SAT 98
--- NOTE | 2018-01-02 04:41 | ED PDOC ---
HPI: General Adult Time Seen by Provider: 01/02/18 04:20 Chief Complaint (Nursing): Abnormal Skin Integrity Chief Complaint (Provider): rash to left hand History Per: Patient History/Exam Limitations: no limitations Onset/Duration Of Symptoms: Hrs Additional Complaint(s): Bassam Hester is a 37 year old male, with a past medical history of substance abuse and bipolar disorder, who presents to the emergency department complaining of a rash to the left hand. Patient is well known to provider for history of bed seeking behavior as well as substance abuse claiming he has a rash. Patient has no rash and admits to bed seeking behavior, he is requesting a bed in ED. No further medical complaints. PMD: None provided. Past Medical History Reviewed: Historical Data, Nursing Documentation, Vital Signs Vital Signs: Last Vital Signs Temp 98.4 F 01/02/18 06:54 Pulse 83 01/02/18 06:54 Resp 16 01/02/18 06:54 BP 132/72 01/02/18 06:54 Pulse Ox 98 01/02/18 06:54 - Medical History PMH: Asthma, Bipolar Disorder, Bronchitis Denies: CVA, Diabetes, Hepatitis, HIV, HTN, Chronic Kidney Disease, Seizures , Sexually Transmitted Disease - Surgical History Surgical History: Tonsillectomy - Family History Family History: States: Unknown Family Hx - Immunization History Hx Tetanus Toxoid Vaccination: No Hx Influenza Vaccination: No Hx Pneumococcal Vaccination: No - Home Medications Home Medications: Ambulatory Orders Medication Instructions Recorded QUEtiapine [SEROquel] 1 tab PO HS 10/09/17 Mupirocin 2% Ointment [Bactroban 1 appl TP TID #1 tube 01/02/18 Ointment] - Allergies Allergies/Adverse Reactions: Allergies Allergy/AdvReac Type Severity Reaction Status Date / Time seafood Allergy Intermediate SWELLING Uncoded 01/02/18 04:21 Review of Systems ROS Statement: Except As Marked, All Systems Reviewed And Found Negative Skin: Negative for: Rash Physical Exam - Reviewed Nursing Documentation Reviewed: Yes Vital Signs Reviewed: Yes - Physical Exam Appears: Positive for: No Acute Distress Head Exam: Positive for: ATRAUMATIC, NORMAL INSPECTION, NORMOCEPHALIC Skin: Positive for: Normal Color, Warm, Dry Eye Exam: Positive for: Normal appearance Neck: Positive for: Painless ROM Cardiovascular/Chest: Positive for: Regular Rate, Rhythm. Negative for: Murmur Respiratory: Positive for: Normal Breath Sounds. Negative for: Respiratory Distress Extremity: Positive for: Normal ROM (upper and lower extremities). Negative for : Deformity Neurologic/Psych: Positive for: Alert, Oriented - ECG O2 Sat by Pulse Oximetry: 98 (RA) Pulse Ox Interpretation: Normal Medical Decision Making Medical Decision Making: Time: 04:20 Initial impression: malingering Initial Plan: ----- Scribe Attestation: Documented by Zac Otto, acting as a scribe for Dorian Porter MD. Provider Scribe Attestation: All medical record entries made by the Scribe were at my direction and personally dictated by me. I have reviewed the chart and agree that the record accurately reflects my personal performance of the history, physical exam, medical decision making, and the department course for this patient. I have also personally directed, reviewed, and agree with the discharge instructions and disposition. Disposition - Clinical Impression Clinical Impression: Malingering, Drug abuse - Disposition Disposition: Routine/Home Disposition Time: 06:00 Condition: STABLE Prescriptions: Mupirocin 2% Ointment [Bactroban Ointment] 1 appl TP TID #1 tube Forms: [employer] (Prydeinig)
[2018-01-02 06:55] VITALS: BP 132/72; PULSE 83; TEMP 98.4
== END 2018-01-02 06:55 | disposition home or self-care (01) ==
LOC: H.ER 04:04
DX: Z76.5 Malingerer [conscious simulation] (principal)

== ENCOUNTER 2018-03-14 13:57 | Emergency (ER) | payer MEDICAID ==
[2018-03-14 13:58] VITALS: BMI 22.9
[2018-03-14 14:12] VITALS: BP 112/66; PULSE 118; RESP 16; TEMP 98; O2SAT 98
--- NOTE | 2018-03-14 14:59 | ED PDOC ---
HPI: CCC, URI, Sore Throat Time Seen by Provider: 03/14/18 14:16 Chief Complaint (Nursing): ENT Problem Chief Complaint (Provider): ENT Problem History Per: Patient History/Exam Limitations: no limitations Onset/Duration Of Symptoms: Days (x2 weeks) Ear Symptoms: Left: Ear Fullness, Decreased Hearing Additional Complaint(s): 37 y/o male presents to the ED complaining of clogged ear with associated decrease in hearing for the past x2 weeks. Patient denies pain but states it feels like there is a lot of wax. Patient reports using peroxide. Past Medical History Reviewed: Historical Data, Nursing Documentation, Vital Signs Vital Signs: Last Vital Signs Temp 98 F 03/14/18 14:10 Pulse 118 H 03/14/18 14:10 Resp 16 03/14/18 14:10 BP 112/66 03/14/18 14:10 Pulse Ox 98 03/14/18 14:10 - Medical History PMH: Asthma, Bipolar Disorder, Bronchitis Denies: CVA, Diabetes, Hepatitis, HIV, HTN, Chronic Kidney Disease, Seizures, Sexually Transmitted Disease - Surgical History Surgical History: Tonsillectomy - Family History Family History: States: Unknown Family Hx - Immunization History Hx Tetanus Toxoid Vaccination: No Hx Influenza Vaccination: No Hx Pneumococcal Vaccination: No - Home Medications Home Medications: Ambulatory Orders Medication Instructions Recorded RX: QUEtiapine [SEROquel] 1 tab PO HS 10/09/17 RX: Mupirocin 2% Ointment 1 appl TP TID #1 tube 01/02/18 [Bactroban Ointment] Carbamide Peroxide [Debrox Ear 10 drop .ROUTE BID 4 Days bottle 03/14/18 Drops] - Allergies Allergies/Adverse Reactions: Allergies Allergy/AdvReac Type Severity Reaction Status Date / Time seafood Allergy Intermediate SWELLING Uncoded 01/02/18 04:21 Review of Systems ROS Statement: Except As Marked, All Systems Reviewed And Found Negative ENT: Positive for: Other (ear blockage; hearing decrease). Negative for: Ear Pain Physical Exam - Reviewed Nursing Documentation Reviewed: Yes Vital Signs Reviewed: Yes - Physical Exam Appears: Positive for: Well, Non-toxic, No Acute Distress Head Exam: Positive for: ATRAUMATIC, NORMOCEPHALIC Skin: Positive for: Normal Color, Warm, Dry Eye Exam: Positive for: EOMI, Normal appearance, PERRL ENT: Negative for: Normal ENT Inspection (Left ear: black foreign body is present; right ear: cerumen impaction) Extremity: Positive for: Normal ROM. Negative for: Pedal Edema, Deformity Neurologic/Psych: Positive for: Alert, Oriented. Negative for: Motor/Sensory Deficits - ECG O2 Sat by Pulse Oximetry: 98 (RA) Pulse Ox Interpretation: Normal Medical Decision Making Medical Decision Making: Time: Initial Impression: foreign body in left ear Initial Plan: 14:52 soft rubber ear bud easily removed from left ear. On reevaluation there is no erythema and TMs are intact bilaterally. Scribe Attestation: Documented by Jaswinder Diaz, acting as a scribe for Latasha Torres PA-C. Provider Scribe Attestation: All medical record entries made by the Scribe were at my direction and personally dictated by me. I have reviewed the chart and agree that the record accurately reflects my personal performance of the history, physical exam, medical decision making, and the department course for this patient. I have also personally directed, reviewed, and agree with the discharge instructions and disposition. Disposition - Clinical Impression Clinical Impression: Foreign body in left ear, Impacted cerumen of right ear - Disposition Disposition: Routine/Home Disposition Time: 16:10 Condition: STABLE Prescriptions: Carbamide Peroxide [Debrox Ear Drops] 10 drop .ROUTE BID 4 Days bottle Instructions: Ear Wax Impaction (DC) Forms: [employer] (Guyanese)
== END 2018-03-14 15:00 | disposition home or self-care (01) ==
LOC: H.ER 13:57
DX: T16.2XXA Foreign body in left ear, initial encounter (principal); H61.21 Impacted cerumen, right ear